=== PATIENT | female | born 1960 | race Caucasian/White ===

== ENCOUNTER 2020-07-08 10:07 | Outpatient (CLI) | payer OTHER ==
[~2020-07-08 10:07] MED LIST: ARIP2TAB2 PO; ASCO-90 PO; ASPI81TA45 PO; CHOL500045 PO; CHON250C PO; ESTR0.5T PO; GLUC15006 PO; LEVO137T3 PO; LEVO15TA7 PO; LORA0.5T PO; OMEG1CAP24 PO; PROG100C16 PO; SIMV20TA19 PO; TRAZ50TA66 PO; UBID100C24 PO; VENL225T PO
[2020-07-08] MEDS ORDERED: calcium PO (10:58)
[2020-07-08] MEDS ORDERED: MULT-252 PO (10:58)
[2020-07-08 12:37] LABS: BASOPHILS # (AUTO) 0.06 x10^3/uL (0-0.1); BASOPHILS % (AUTO) 1 % (0-1); EOSINOPHILS # (AUTO) 0.58 x10^3/uL (0-0.4); EOSINOPHILS % (AUTO) 7 % (1-7); LYMPHOCYTES # (AUTO) 2.88 x10^3/uL (1-3.4); LYMPHOCYTES % (AUTO) 33 % (22-44); MD NO; MEAN CORPUSCULAR HEMOGLOBIN 28.7 pg (27.0-34.8); MEAN CORPUSCULAR HGB CONC 32.5 g/dL (32.4-35.8); MEAN CORPUSCULAR VOLUME 88.2 fL (80-100); MEAN PLATELET VOLUME 8.9 fL (7.4-10.4); MONOCYTES # (AUTO) 0.88 x10^3/uL (0.2-0.8); MONOCYTES % (AUTO) 10 % (2-9); NEUTROPHILS # (AUTO) 4.45 x10^3/uL (1.8-6.8); NEUTROPHILS % (AUTO) 50 % (42-75); PLATELET COUNT 291 x10^3/uL (130-400); RED BLOOD COUNT 4.43 x10^6/uL (3.82-5.3); RED CELL DISTRIBUTION WIDTH 14.9 % (9.6-15.2)
[2020-07-08 12:44] LABS: CHLORIDE 108 mmol/L (98-107)
[2020-07-08 12:54] LABS: ANION GAP 7 mmol/L (5-15); CALCIUM 8.9 mg/dL (8.5-10.1); CREATININE 0.81 mg/dL (0.55-1.02)
== END 2020-07-08 23:59 | disposition home or self-care (01) ==
LOC: STAR 10:07
PROVIDERS: ATTEND Orthopaedic Surgery
DX: Z01.818 Encounter for other preprocedural examination (principal); Z20.828 Contact with and (suspected) exposure to other viral communicable diseases
CPT/HCPCS: 36415; 80048; 85025; 87081; 87635; 93005

== ENCOUNTER 2020-07-12 06:55 | Observation (INO) | payer OTHER ==
[~2020-07-12] VITALS: Ht 175.3 cm; Wt 109.3 kg
[~2020-07-12 06:55] MED LIST changes: +MULT-252 PO; +calcium PO
[2020-07-12] MEDS ORDERED: VANCOMYCIN 1,000 MG ONE (07:03)
[2020-07-12] MEDS ORDERED: LACTATED RINGERS 1,000 ML IV SCH (07:03)
[2020-07-12] MEDS ORDERED: CHLORHEXIDINE 15 ML UDC MM STA (07:04)
[2020-07-12] MEDS ORDERED: FENTANYL PF 100 MCG/2ML ONE ×4 (08:40→11:03)
[2020-07-12] MEDS ORDERED: ACETAMINOPHEN 325 MG TABLET PO PRN (09:30)
[2020-07-12] MEDS ORDERED: MEPERIDINE/PF 25MG/0.5ML IVPush PRN (09:30)
[2020-07-12] MEDS ORDERED: ONDANSETRON 2MG/ML, 2ML IVPush PRN ×3 (09:30→14:00)
[2020-07-12] MEDS ORDERED: hydrALAzine 20 MG/ML, 1ML IV PRN (09:30)
[2020-07-12] MEDS ORDERED: DIPHENHYDRAMINE 50 MG/ML, 1ML IVPush PRN ×3 (09:30→11:00)
[2020-07-12] MEDS ORDERED: PROMETHAZINE 25 MG/ML, 1ML IVPush PRN (09:30)
[2020-07-12] MEDS ORDERED: HYDROmorphone 1 MG/ML, 1ML INJ IVPush PRN ×2 (09:30→11:00)
[2020-07-12] MEDS ORDERED: LABETALOL 5MG/ML, 20ML IV PRN (09:30)
[2020-07-12] MEDS ORDERED: ALBUTEROL SULFATE 2.5 MG/3 ML NPPB PRN (09:30)
[2020-07-12] MEDS ORDERED: OXYcodone 5 MG/5 ML ORAL.SOL UDC PO PRN (09:30)
[2020-07-12] MEDS ORDERED: PROPOFOL 50 ML ONE (09:38)
[2020-07-12] MEDS ORDERED: SUCCINYLCHOLINE 20 MG/ML, 10ML ONE (10:32)
[2020-07-12] MEDS ORDERED: ONDANSETRON 2MG/ML, 2ML ONE (10:32)
[2020-07-12] MEDS ORDERED: DEXAMETHASONE 4 MG/ML, 1ML ONE (10:32)
[2020-07-12] MEDS ORDERED: NEOSTIGMINE 1 MG/ML, 10ML ONE (10:32)
[2020-07-12] MEDS ORDERED: GLYCOPYRROLATE 0.2MG/1ML, 5ML ONE (10:32)
[2020-07-12] MEDS ORDERED: ROCURONIUM 10MG/ML,5ML ONE (10:32)
[2020-07-12] MEDS ORDERED: CEFAZOLIN 1,000 MG ONE (10:32)
[2020-07-12] MEDS ORDERED: PROPOFOL 10 MG/ML, 20ML ONE (10:32)
[2020-07-12] MEDS ORDERED: LEVO137T3 PO (10:52)
[2020-07-12] MEDS ORDERED: ONDANSETRON 4 MG TABLET PO PRN (11:00)
[2020-07-12] MEDS ORDERED: ONDANSETRON ODT 4 MG PO PRN (11:00)
[2020-07-12] MEDS ORDERED: PROMETHAZINE 12.5 MG SUPP PR PRN (11:00)
[2020-07-12] MEDS ORDERED: PROMETHAZINE 25 MG/ML, 1ML IM PRN (11:00)
[2020-07-12] MEDS ORDERED: TRANEXAMIC ACID 1,000 MG in SODIUM CHLORIDE 0.9% 100 ML IVPB ONE (11:00)
[2020-07-12] MEDS ORDERED: ONDANSETRON 2MG/ML, 2ML IV PRN (11:00)
[2020-07-12] MEDS ORDERED: BISACODYL 10 MG SUPP PR PRN (11:00)
[2020-07-12] MEDS ORDERED: OXYcodone IR 5MG TABLET PO PRN ×2 (11:00→14:00)
[2020-07-12] MEDS ORDERED: DIPHENHYDRAMINE 25 MG CAPSULE PO PRN (11:00)
[2020-07-12] MEDS ORDERED: ACETAMINOPHEN 650 MG/20.3 ML UDC ONE (11:02)
[2020-07-12] MEDS ORDERED: DIPHENHYDRAMINE 50 MG/ML, 1ML ONE (11:03)
[2020-07-12] MEDS ORDERED: OXYcodone 5 MG/5 ML ORAL.SOL UDC ONE (11:03)
[2020-07-12] MEDS: FENTANYL PF 100 MCG/2ML IV PRN ×2 (11:11→11:17)
[2020-07-12] MEDS ORDERED: DIPHENHYDRAMINE 50 MG/ML, 1ML IVPush STA (11:41)
[2020-07-12] MEDS ORDERED: METHOCARBAMOL 1,000 MG in DEXTROSE 5% 100 ML IV ONE (12:00)
[2020-07-12] MEDS ORDERED: MAGNESIUM HYDROXIDE 8%, 30ML UDC PO PRN (13:00)
[2020-07-12] MEDS ORDERED: ALUMINUM/MAG/SIMETHICONE 30 ML UDC PO PRN (14:00)
[2020-07-12] MEDS ORDERED: PSYLLIUM PACKET PO PRN (14:00)
[2020-07-12] MEDS ORDERED: POLYETHYLENE GLYCOL 17 GM PACKET PO PRN (14:00)
[2020-07-12] MEDS ORDERED: DIAZEPAM 5 MG TABLET PO PRN (14:00)
[2020-07-12] MEDS ORDERED: SENNA/DOCUSATE TABLET PO PRN (14:00)
[2020-07-12] MEDS: SODIUM CHLORIDE 0.9% 1,000 ML IV SCH ×2 (16:41→23:25)
[2020-07-12] MEDS: KETOROLAC 30 MG/1 ML IV SCH (18:13)
[2020-07-12] MEDS: CALCIUM/VITAMIN D3 250-125 TABLET PO SCH (18:14)
[2020-07-12] MEDS: ACETAMINOPHEN 500 MG TABLET PO SCH ×2 (18:14→22:54)
[2020-07-12] MEDS: CEFAZOLIN PMX 1GM/50ML 50 ML IVPB SCH (18:14)
[2020-07-12 19:51] VITALS: BP 114/75
[2020-07-12] MEDS: DOCUSATE 100 MG CAPSULE PO SCH (20:35)
[2020-07-12] MEDS: ASPIRIN 81 MG TABLET EC PO SCH (22:54)
[2020-07-13 01:13] VITALS: BP 100/63
[2020-07-13] MEDS: CEFAZOLIN PMX 1GM/50ML 50 ML IVPB SCH (02:40)
[2020-07-13] MEDS: KETOROLAC 30 MG/1 ML IV SCH ×2 (02:40→10:00)
[2020-07-13 04:19] VITALS: BP 102/61
[2020-07-13] MEDS ORDERED: LEVOTHYROXINE 150 MCG TABLET PO SCH (06:00)
[2020-07-13] MEDS ORDERED: DEXAMETHASONE 4 MG/ML, 1ML IVPush ONE (06:00)
[2020-07-13] MEDS: ACETAMINOPHEN 500 MG TABLET PO SCH (06:41)
[2020-07-13 07:30] VITALS: BP 105/67
[2020-07-13] MEDS: ASPIRIN 81 MG TABLET EC PO SCH (08:31)
[2020-07-13] MEDS: CALCIUM/VITAMIN D3 250-125 TABLET PO SCH ×2 (08:31→11:24)
[2020-07-13] MEDS: DOCUSATE 100 MG CAPSULE PO SCH (08:31)
== END 2020-07-13 12:11 | disposition home or self-care (01) ==
LOC: OUT 06:55 → 4NE 10:51 → DCLOUNGE 07-13 11:58
PROVIDERS: ADMIT Orthopaedic Surgery; ATTEND Orthopaedic Surgery
DX: M17.11 Unilateral primary osteoarthritis, right knee (principal); M21.061 Valgus deformity, not elsewhere classified, right knee; M54.42 Lumbago with sciatica, left side; Z96.651 Presence of right artificial knee joint; Z86.73 Personal history of transient ischemic attack (TIA), and cerebral infarction without residual deficits; Z79.899 Other long term (current) drug therapy
CPT/HCPCS: 27447; 36415; 73560; 85014; 85018; 96361; 96365; 96366; 96375; 96376; 97162; C1713; C1776; G0378; J0330; J0690; J1100; J1200; J1885; J2405; J2704; J2710; J3010; J3370; J7030; J7120